=== PATIENT | male | born 2000 | race Caucasian/White ===

== ENCOUNTER → 2024-10-26 | Outpatient (CLI) | payer OTHER, SELFPAY ==
--- NOTE | 2024-10-26 07:24 | US_ITS ---
PROCEDURE: HEAD/NECK SOFT TISSUE 10/26/2024 REASON FOR EXAM: EVALUATE LEFT NECK SUBCUT MASS TECHNIQUE: Targeted sonogram of the left neck at the region of palpable lump COMPARISON: None US/Head/Neck Soft Tissue IMPRESSION: Within the left neck at the region of palpable lump, there is a 4.7 x 4.4 x 2.0 cm hypoechoic structure with debris and posterior enhancement, which may reflect a complex cyst or neoplastic process. Reading Location: [id number]
--- OUTSIDE RECORDS SUMMARY | 2024-10-26 07:25 | XMS RPT_ITS | CCD ---
Author Organization [facility] Care Team Providers Care Interior Decorator Painting Name Role Phone CIRILO BROCK (DIRECTOR OF INFORMATICS) Referring Unavaila ble Álvaro Paul Primary Care Unavailable Álvaro Paul Attending Unavailable Álvaro Paul Referring Unavailable Problems Problem Classification Problem Date Documented Da te Episodic/Chronic Other skin disorders (1 source) Localized swelling, mass and lump, neck; Translations: [Localized swelling, mass and lump, neck] Onset: 10-24-2024 Episodic Results Test Name Value Interpretation Reference Range Facility AMB ENT Physician Progress N oteon 11-04-2019 AMB ENT Physician Progress Note Chief Complaint 2 week follow ears History of Present Illness Tripp returns for follow-up. He never did fill the drops because they were too expensive. In any event the drainage is stopped but the ear still feels blocked. Review of Systems General: Denies fever Eyes: Negative Ears: Right ear still feels blocked, pops and cracks Nose: Negative Oral/Throat: Negative Respiratory: Denies difficulty breathing, shortness of breath or cough GI: Denies recent diarrhea Physical Exam Vitals & Measurements Temperature Temporal (F): 98.2 degF (11/04/19 08:32:00) Systolic Blood Pressure: 144 mmHg High (11/04/19 08:32:00) Diastolic Blood Pressure: 97 mmHg High (11/04/19 08:32:00) Height/Length Measured: 185 cm (11/04/19 08:32:00) Weight Measured: 93 kg (11/04/19 08:32:00) Body Mass Index Measured: 27.17 kg/m2 (11/04/19 08:32:00) Depression Screening Scores Initial Depression Screen Score: 0 (11/04/19 08:32:00) Fall Risk Assessment Is the patient ambulatory (mobile): Yes (11/04/19 08:32:00) Have you had a fall within the past: No (11/04/19 08:32:00) Have you had 2 or more falls in the past: No (11/04/19 08:32:00) Evaluation that right ear does not reveal any evidence of any persistent otorrhea. I do not see a persistent perforation. The drum itself is quite erythematous and injected. He does look he has a cartilage block that is in place. He may have middle ear effusion. Audiometric testing was performed which reveals a normal left ear and a roughly 30 dB conductive hearing loss in the right ear. Tympanogram is normal on the left and type B on the right Assessment/Plan 1. Acute serous otitis media, right ear H65.01 At this point time the perforation is closed and I believe he is now simply left with middle ear fluid. We did try to get that to resolve on its own. 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 He is fine with that as long as he does well see him back in 3 months if he feels as though things are getting worse to notify me I will see him back sooner. Ordered: AMB Comp audiometry threshold & speech recog [id number], 11/04/2019 09:05:00 EDT, Acute serous otitis media, right ear / Conductive hearing loss in right ear, 1 AMB Office/Outpt Est Pt (approx 10 min) [id number], 11/04/2019 09:05:00 EDT, Acute serous otitis media, right ear / Conductive hearing loss in right ear AMB Tympanometry (impedance testing) 21091, 11/04/2019 09:05:00 EDT, Acute serous otitis media, right ear / Conductive hearing loss in right ear, 1 2. Conductive hearing loss in right ear H90.11 Ordered: AMB Comp audiometry threshold & speech recog [id number], 11/04/2019 09:05:00 EDT, Acute serous otitis media, right ear / Conductive hearing loss in right ear, 1 AMB Office/Outpt Est Pt (approx 10 min) [id number], 11/04/2019 09:05:00 EDT, Acute serous otitis media, right ear / Conductive hearing loss in right ear AMB Tympanometry (impedance testing) 08241, 11/04/2019 09:05:00 EDT, Acute serous otitis media, right ear / Conductive hearing loss in right ear, 1 Problem List/Past Medical History Ongoing Migraines Historical No qualifying data Procedure/Surgical History ear surgery Medications No active medications Allergies aspirin ibuprofen Social History Alcohol - Denies Alcohol Use, 12/12/2017 Substance Abuse - Denies Substance Abuse, 12/12/2017 Tobacco Oral, Started age [age] Years., 11/04/2019 Family History Family history is negative Normal [facility] AUTO DIFFon 03-31-2019 Basophils (Bld) [#/Vol] 0.00 x1000 Normal 0.00-0.20 [facility] Comment on above: Performed By: #### 6 [id number], 548551, 335929, [id number], 013640 #### [facility] [address] [place] [address] 05372 Airplane Designer: Maxime Anderson MD Basos % 0.2 % Normal [facility] Comment on above: Performed By: #### 6 877590, 678860, 079637, 3664883, 503873 #### [facility] [address] [place] [address] 13537 Airplane Designer: Maxime Anderson MD Eos Count 0.00 x1000 Normal 0.00-0.50 [facility] Comment on above: Performed By: #### 6 707318, 821495, 682499, 6596447, 726824 #### [facility] [address] [place] [address] 43031 Airplane Designer: Maxime Anderson MD Eosinophils/100 WBC (Bld) 0.2 % Normal [facility] Comment on above: Performed By: #### 6 721226, 465760, 736016, 1837761, 498134 #### [facility] [address] [place] [address] 50486 Airplane Designer: Maxime Anderson MD Lymphocytes (Bld) [#/Vol] 1.00 x1000 Low 1.20-4.80 [facility] Comment on above: Performed By: #### 6 369875, 826748, 155972, 3374758, 466352 #### [facility] [address] [place] [address] 28344 Airplane Designer: Maxime Anderson MD Lymphocytes/100 WBC (Bld) 13.6 % Normal [facility] Comment on above: Performed By: #### 6 651978, 099328, 111905, 2198027, 396308 #### [facility] [address] [place] [address] 06767 Airplane Designer: Maxime Anderson MD [place] Count 0.60 x1000 Normal 0.10-1.00 [facility] Comment on above: Performed By: #### 6 511310, 249523, 567547, 1838963, 713664 #### [facility] [address] [place] [address] 41796 Airplane Designer: Maxime Anderson MD Monocytes/100 WBC (Bld) 8.1 % Normal [facility] Comment on above: Performed By: #### 6 161637, 521762, 326985, 2412628, 824464 #### [facility] [address] [place] [address] 96747 Airplane Designer: Maxime Anderson MD Neutrophils (Bld) [#/Vol] 5.70 x1000 Normal 1.40-8.80 [facility] Comment on above: Performed By: #### 6 445266, 406932, 296390, 7021585, 886072 #### [facility] [address] [place] [address] 88278 Airplane Designer: Maxime Anderson MD Neutrophils/100 WBC (Bld) 77.9 % Normal [facility] Comment on above: Performed By: #### 6 121053, 512167, 108286, 0097221, 945514 #### [facility] [address] [place] [address] 61409 Airplane Designer: Maxime Anderson MD COMPMETAon 03-31-2019 GFR/1.73 sq M predicted among non-blacks MDRD (S/P/Bld) [Vol rate/Area] 78 mL/min/{1.73_m2} Normal [facility] Comment on above: Result Comment: The GFR is calculated and is Age, Sex, and Race adjusted. Performed By: #### 6 436380, 247486, 469707, 4696679, 226466 #### [facility] [address] [place] [address] 77560 Airplane Designer: Maxime Anderson MD Albumin [Mass/Vol] 3.6 g/dL Normal 3.4-5.0 [facility] Comment on above: Performed By: #### 6 296049, 146119, 368287, 4086797, 715943 #### [facility] [address] [place] [address] 80420 Airplane Designer: Maxime Anderson MD Albumin/Globulin [Mass ratio] 1.0 {ratio} Normal [facility] Comment on above: Performed By: #### 6 793917, 091798, 216399, 6614729, 761323 #### [facility] [address] [place] [address] 23300 Airplane Designer: Maxime Anderson MD Alk Phos 68 unit/L Normal 45-117 [facility] Comment on above: Performed By: #### 6 651681, 253732, 775039, 8370836, 772588 #### [facility] [address] [place] [address] 07297 Airplane Designer: Maxime Anderson MD Bilirubin [Mass/Vol] 1.00 mg/dL Normal 0.20-1.00 [facility] Comment on above: Performed By: #### 6 637146, 517844, 721687, 3620706, 289358 #### [facility] [address] [place] [address] 69790 Airplane Designer: Maxime Anderson MD Calcium [Mass/Vol] 8.4 mg/dL Low 8.5-10.5 [facility] Comment on above: Performed By: #### 6 885288, 860586, 361353, 1236319, 014346 #### [facility] [address] [place] [address] 97613 Airplane Designer: Maxime Anderson MD Chloride [Moles/Vol] 102 mmol/L Normal 100-109 [facility] Comment on above: Performed By: #### 6 820846, 140458, 653358, 8585608, 233490 #### [facility] [address] [place] [address] 23284 Airplane Designer: Maxime Anderson MD CO2, venous 24.5 mmol/L Normal 21.0-32.0 [facility] Comment on above: Performed By: #### 6 866873, 344627, 012639, 8984043, 500386 #### [facility] [address] [place] [address] 35988 Airplane Designer: Maxime Anderson MD Creatinine [Mass/Vol] 1.2 mg/dL Normal 0.7-1.3 [facility] Comment on above: Performed By: #### 6 982824, 435041, 491762, 4384042, 008348 #### [facility] [address] [place] [address] 89416 Airplane Designer: Maxime Anderson MD Globulin (S) [Mass/Vol] 3.6 g/dL Normal [facility] Comment on above: Performed By: #### 6 848743, 470863, 034608, 3249337, 510178 #### [facility] [address] [place] [address] 24642 Airplane Designer: Maxime Anderson MD Glucose [Mass/Vol] 91 mg/dL Normal 72-100 [facility] Comment on above: Result Comment: Sherry puncture should occur prior to sulfasalazine administration due to the potential for falsely depressed results. Venipuncture should occur prior to sulfapyridine administration due to the potential falsely elevated results. Baseline assay values before administration of sulfasalazine and sulfapyridine therapy would not be affected. Performed By: #### 6 165040, 045699, 345418, 9203299, 097453 #### [facility] [address] [place] [address] 59847 Airplane Designer: Maxime Anderson MD GOT 13 unit/L Low 15-37 [facility] Comment on above: Result Comment: Sherry puncture should occur prior to sulfasalazine administration due to the potential for falsely depressed results. Baseline assay values before administration of sulfasalazine and sulfapyridine therapy would not be affected. Performed By: #### 6 861244, 525163, 679554, 7613543, 455493 #### [facility] [address] [place] [address] 38774 Airplane Designer: Maxime Anderson MD GPT 46 unit/L Normal 16-63 [facility] Comment on above: Result Comment: Sherry puncture should occur prior to sulfasalazine administration due to the potential for falsely depressed results. Baseline assay values before administration of sulfasalazine and sulfapyridine therapy would not be affected. Performed By: #### 6 446495, 947596, 255118, 0760772, 052389 #### [facility] [address] [place] [address] 10968 Airplane Designer: Maxime Anderson MD Osmolality [Osmolality] 276 mOsm/kg Normal 275-295 [facility] Comment on above: Performed By: #### 6 271899, 734670, 674699, 8402911, 412782 #### [facility] [address] [place] [address] 36499 Airplane Designer: Maxime Anderson MD Potassium [Moles/Vol] 3.5 mmol/L Normal 3.5-5.1 [facility] Comment on above: Performed By: #### 6 400423, 919300, 013682, 8197365, 197621 #### [facility] [address] [place] [address] 19760 Airplane Designer: Maxime Anderson MD Protein [Mass/Vol] 7.2 g/dL Normal 6.0-8.5 [facility] Comment on above: Performed By: #### 6 473745, 384565, 653935, 1340418, 854099 #### [facility] [address] [place] [address] 20891 Airplane Designer: Maxime Anderson MD Sodium [Moles/Vol] 139 mmol/L Normal 135-145 [facility] Comment on above: Performed By: #### 6 361269, 217154, 457934, 5259719, 242593 #### [facility] [address] [place] [address] 73022 Airplane Designer: Maxime Anderson MD Urea nitrogen [Mass/Vol] 10 mg/dL Normal 10-20 [facility] Comment on above: Performed By: #### 6 673298, 596491, 160538, 8872459, 186236 #### [facility] [address] [place] [address] 40215 Airplane Designer: Maxime Anderson MD Urea nitrogen/Creatinine [Mass ratio] 8.3 mg/mg Normal [facility] Comment on above: Performed By: #### 6 477864, 668013, 678703, 3275005, 451695 #### [facility] [address] [place] [address] 94877 Airplane Designer: Maxime Anderson MD CRP QUANTon 03-31-2019 C-Reactive Protein, Quantitative 3.9 mg/dL High 0.0-0.3 [facility] Comment on above: Performed By: #### 6 815449, 920597, 341621, 2474838, 513886 #### [facility] [address] [place] [address] 81680 Airplane Designer: Maxime Anderson MD CT ABD PELVIS W IV CONTRASTo n 03-31-2019 CT ABD PELVIS W IV CONTRAST EXAM DESCRIPTION: CT OF THE ABDOMEN AND PELVIS CLINICAL INDICATION: PAIN. TECHNIQUE: Helical CT imaging was obtained of the abdomen and pelvis with multiplanar reconstructions. This exam was performed according to our departmental dose-optimization program, which includes automated exposure control, adjustment of the mA and/or kV according to patient size and/or use of iterative reconstruction techniques. COMPARISON: None FINDINGS: Abdomen: Visualized lung bases are grossly unremarkable. No focal consolidation. The liver, spleen, pancreas, adrenal glands and kidneys show no acute abnormality. No evidence of acute pancreatitis. There are no calcified gallstones. There is no gallbladder wall thickening. No pericholecystic fluid.. No gross biliary duct dilatation. No hydronephrosis. Very small fat-containing umbilical hernia No free air. No significant free fluid. No significant lymph node enlargement. No aneurysmal enlargement of the abdominal aorta. Pelvis: No bowel obstruction. No herniated bowel loops. No focal inflammatory changes. 6 normal appendix identified. Evaluation of the bowel is limited without enteric contrast. There is no significant free fluid in the pelvis. Bladder is grossly unremarkable. No acute osseous abnormality IMPRESSION: No evidence of an acute process. No bowel obstruction, herniated bowel loops or focal inflammatory changes. 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 History source: Patient. Arrival mode: Private vehicle. History limitation: None. History of Present Illness Pt just left AMA. But when he got to his car, the pain was bothering him, so now he is back to have the CT scan. No other change in symptoms. Health Status Allergies: Allergic Reactions (Selected) Severity Not Documented Aspirin- No reactions were documented. Ibuprofen- No reactions were documented.. Past Medical/ Family/ Social History Medical history: No active or resolved past medical history items have been selected or recorded.. Surgical history: ear surgery.. Physical Examination Vital Signs Vital Signs 03/31/2019 0:15 EST Systolic Blood Pressure 128 mmHg NORMAL Diastolic Blood Pressure 88 mmHg NORMAL Temperature Oral 36.9 degC NORMAL Respiratory Rate 16 br/min NORMAL SpO2 99 % NORMAL Peripheral Pulse Rate 88 bpm NORMAL 03/30/2019 23:15 EST Heart Rate Monitored 96 bpm NORMAL SpO2 98 % NORMAL Peripheral Pulse Rate 96 bpm NORMAL 03/30/2019 23:00 EST Systolic Blood Pressure 137 mmHg NORMAL Diastolic Blood Pressure 84 mmHg NORMAL Heart Rate Monitored 102 bpm HI SpO2 96 % NORMAL Peripheral Pulse Rate 108 bpm HI 03/30/2019 22:52 EST Systolic Blood Pressure 137 mmHg NORMAL Diastolic Blood Pressure 84 mmHg NORMAL Temperature Oral 36.9 degC NORMAL Respiratory Rate 18 br/min NORMAL SpO2 98 % NORMAL Oxygen Therapy Room air Peripheral Pulse Rate 110 bpm HI Weight Measured Type of Scale Patient Stated Weight Height/Length Dosing 182 cm Patient Stated Weight 86 kg . General: Alert, no acute distress. Neck: Supple, no tenderness. Cardiovascular: Regular rate and rhythm, No murmur, Normal peripheral perfusion. Respiratory: Lungs are clear to auscultation, respirations are non-labored. Gastrointestinal: Soft, Non distended, No tenderness.. Medical Decision Making Radiology results: Reviewed radiologist's report, Per radiologist: normal appendix, no herniated bowel, no inflammatory changes, no osseous abnormality.. After careful consideration of all the relevant factors involved, my judgment is that the benefit of CT scan in helping to determine diagnosis and evaluate for possibly emergent conditions which might require surgery/antibiotics/ho spitalization outweighs the risk of radiation and IV contrast exposure, and that reasonably-available alternative radiological studies would not adequately substitute. Risk vs benefit discussed; pt consents verbally. A/P: (Please also see my note from the visit that occurred less than an hour ago). Pt with one day history of back pain, also in lower abdomen. Afebrile. CT scan read as normal appendix, no bowel herniation, no acute osseous abnormality. Patient's pain improving. Final abdominal exam benign. After careful consideration of all available information, there is no reasonable suspicion for: appendicitis, spinal infection, cauda equina, testicular torsion, other emc. See prior A/P today regarding RODRIGUEZ. Pt is to follow-up closely with PMD. Specific red flags for immediate return discussed. (I offered to give Reglan for migraine, pt declined. I offered Tylenol, pt declined) Reexamination/ Reevaluation 01:22 Pain improved. Impression and Plan Diagnosis Abdominal pain, acute (MXO35-HD R10.9, Working, Medical) Acute lumbar back pain (TLL74-EV M54.5, Working, Medical) Migraine headache (RFV28-XL G43.909, Working, Medical) Blood pressure elevated without history of HTN (JKT37-IV R03.0, Working, Medical) Plan Condition: Improved, Stable. Disposition: ED Discharge to Home was placed.(03/31/2019 01:22:17 EST, Constant Order). Patient was given the following educational materials: Abdominal Pain (amv) (4279), Headache, Migraine (amv) (4279), Pre-Hypertension/Hyper ension (amv) (4279), Back Pain (4279) (4279), Back Pain (4279) (4279), Pre-Hypertension/Hyper ension (amv) (4279), Headache, Migraine (amv) (4279), Abdominal Pain (amv) (4279). Follow up with: ADELITA BECKHAM, Family Practice Within 1 to 2 days Return IMMEDIATELY for: fever, vomiting, severe or unusual headache, WORSENING pain in abdomen or back, pain that is mostly on one side, numbness/tingling, weakness, problems controlling bladder or bowels, or any other WORSENING. Be certain to follow-up prompty with doctor as discussed; call this morning to schedule an appointment. Important: If for some reason you are not able to get an appointment with the follow-up physician in the timeframe discussed, please return to Emergency Department for re-evaluation. Have follow-up physician review all of the tests done in the department tonight, as some may require further investigation. . Counseled: Patient, Regarding diagnosis, Regarding diagnostic results, Regarding treatment plan, Patient indicated understanding of instructions, In addition to my written discharge instructions, I verbally explained to patient my diagnosis as well as plans for outpatient treatment, and red flags for immediate return to our ED. Pt had opportunity to ask any questions about all of this, and pt is comfortable with plan.. Orders: Launch Order Profile (Selected) Inpatient Orders Ordered Normal Saline Bolus (0.9%NaCl): 1,000 mL, 1000 mL/hr, IV Piggyback, ONCE Completed CT ABD PELVIS W IV CONTRAST: . 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 History source: Patient. Arrival mode: Private vehicle. History limitation: None. History of Present Illness Patient complains of non-lateralizing lumbar pain since about 9am. Continuous. 6 of 10 severity. Some aggravation from sitting up. Has had some associated nausea, suprapubic discomfort, and feels bloated. No history of abdominal surgery. Review of Systems Constitutional symptoms: Fatigue, No fever, ENMT symptoms: Negative except as documented in HPI, No sore throat, Respiratory symptoms: No shortness of breath, no cough. Cardiovascular symptoms: No chest pain, Gastrointestinal symptoms: One episode of diarrhea this morning.. Genitourinary symptoms: No dysuria, no hematuria. Musculoskeletal symptoms: No LE swelling.. Neurologic symptoms Had migraine headache yesterday; resolved after treatment; recurred today; no atypical features compared to his long history of migraines., no numbness, no tingling, no weakness. Additional review of systems information: All other systems reviewed and otherwise negative. Health Status Allergies: Allergic Reactions (Selected) Severity Not Documented Aspirin- No reactions were documented. Ibuprofen- No reactions were documented.. Past Medical/ Family/ Social History Medical history: Migraines. Recurrent lumbar pain.. Surgical history: ear surgery., Reviewed as documented in chart. Social history: Alcohol use: Denies, Tobacco use: Denies. Physical Examination Vital Signs Vital Signs 03/30/2019 23:15 EST Heart Rate Monitored 96 bpm NORMAL SpO2 98 % NORMAL Peripheral Pulse Rate 96 bpm NORMAL 03/30/2019 23:00 EST Systolic Blood Pressure 137 mmHg NORMAL Diastolic Blood Pressure 84 mmHg NORMAL Heart Rate Monitored 102 bpm HI SpO2 96 % NORMAL Peripheral Pulse Rate 108 bpm HI 03/30/2019 22:52 EST Systolic Blood Pressure 137 mmHg NORMAL Diastolic Blood Pressure 84 mmHg NORMAL Temperature Oral 36.9 degC NORMAL Respiratory Rate 18 br/min NORMAL SpO2 98 % NORMAL Oxygen Therapy Room air Peripheral Pulse Rate 110 bpm HI Weight Measured Type of Scale Patient Stated Weight Height/Length Dosing 182 cm Patient Stated Weight 86 kg . General: Alert, no acute distress, Not ill-appearing, Skin: Warm, dry. Head: Normocephalic, atraumatic. Neck: Supple, no tenderness. Eye: Pupils are equal, round and reactive to light, extraocular movements are intact, normal conjunctiva, No nystagmus.. Ears, nose, mouth and throat: Oral mucosa moist, no pharyngeal erythema or exudate. Cardiovascular: Regular rate and rhythm, No murmur, Normal peripheral perfusion, No edema. Respiratory: Lungs are clear to auscultation, respirations are non-labored, breath sounds are equal. Gastrointestinal: Soft, Non distended, Normal bowel sounds, Mild LLQ tenderness; no other abdominal tenderness. No rebound or guarding.. Genitourinary: Examined standing: normal testicular lie; no testicular tenderness or swelling; no inguinal hernia with cough bilaterally.. Neurological Alert and oriented to person, place, time, and situation, No focal neurological deficit observed, normal sensory observed, normal motor observed, normal speech observed, normal coordination observed, 5/5 bilateral hip flexion, knee extention, great toe extention; grossly normal light-touch throughout bilateral LE., Normal gait.. Medical Decision Making Electrocardiogram: No leukocytosis. Mildly elevated CRP. . A/P: 1) Pt with one-day history of non-lateralizing pain to lumbar area, with mild suprapubic pain. Minimal abdominal tenderness. Afebrile. Has no leukocytosis, but does have elevated CRP. Had some improvement without treatment here. I explained to patient the rationale for my wanting to get a CT scan of abdomen and pelvis; potential risks of not doing it (e.g., ruptured appendix with severe infection and life-long complications from adhesions) explained; pt REFUSES CT scan; he prefers to go home and see if it continues to improve; says he will see Dr. Beckham this morning; I urged him to return immediately should he change his mind, or for any worsening or the red flags we discussed. 2) Pt with migraine headache, which he says is completely typical of long history of migraines. Afebrile, looks well, supple neck, normal neuro exam. After careful consideration of all available information, there is no reasonable suspicion for: CERTIFIED NURSE PRACTITIONER infection, intracranial hemorrhage, dural venous sinus thrombosis, cervical arterial dissection, other emc. 3) PMD f/u today, or return to ER. Reexamination/ Reevaluation 00:00 Pt says pain has improved from 8 to 6. Has minimal RUQ/suprapubic pain. No change in pain when he jumps up and down. Impression and Plan Diagnosis Abdominal pain, acute (CCU93-II R10.9, Working, Medical) Acute lumbar back pain (UJK29-BI M54.5, Working, Medical) Headache ([id number] R51, Working, Medical) Plan Condition: Improved. Disposition: Time 03/31/2019 00:04:00, Left against medical advice, Please see AMA T-sheet and [facility] T-sheet.. Follow up with: ADELITA BECKHAM, Family Practice 03/31/2019 09:00:00 Return IMMEDIATELY for: any worsening of your pain in any way, pain that seems mostly on one side, fever, vomiting, any other WORSENING...or if you change your mind and want to have further evaluation of possbily very serious problems, such as appendicitis. Be certain to follow-up prompty with doctor as discussed; call this morning to schedule an appointment. Important: If for some reason you are not able to get an appointment with the follow-up physician FOR THIS MORNING, please return to Emergency Department for re-evaluation. Have follow-up physician review all of the tests done in the department tonight, as some may require further investigation. Drink clear fluids only until pain has clearly and completely resolved.. Counseled: Patient, Regarding diagnosis, Regarding diagnostic results, Regarding treatment plan, Patient indicated understanding of instructions, In addition to my written discharge instructions, I verbally explained to patient my diagnosis as well as plans for outpatient treatment, and red flags for immediate return to our ED. Pt had opportunity to ask any questions about all of this, and pt is comfortable with plan.. Orders: Launch Order Profile (Selected) Inpatient Orders Completed CBC WITH DIFF: CMP: CRP QUANT: LIPASE: URINALYSIS: Urinalysis with Microscopic: . Normal [facility] ED Progress Noteon 11-07-201 9 ED Progress Note Pt returns to ED for CT scan after leaving AMA. VSS and RR unlabored. IV placed. Will continue to monitor. Pt ambulated to DC w/ steady gait. VSS and RR unlabored. IV removed w/o incident. DC instructions and f/u recommendations given to pt who states understanding. All questions answered prior to DC. Normal [facility] ED Progress Note Pt presents to ED fr om home w/ c/o of lower back, abd pain and stomach pressure all day. Pt is concerned for kidney stones but denies significant dysuria. VSS and RR unlabored. Urine specimen obtained, IV started and labs drawn. Will continue to monitor. Pt left facility AMA, all forms signed as indicated. Pt ambulated to DC w/ steady gait. VSS and RR unlabored. IV removed w/o incident. DC instructions and f/u recommendations given to pt who states understanding. All questions answered prior to DC. Normal [facility] HEMOon 03-31-2019 DIFF? No Normal [facility] Comment on above: Performed By: #### 6 [id number], 735392, 219427, [id number], [id number] #### [facility] [address] [place] [address] Airplane Designer: Maxime Anderson MD Erythrocyte distribution width (RBC) [Ratio] 12.8 % Normal 11.5-14.5 [facility] Comment on above: Performed By: #### 6 [id number], 916124, 822168, 8169263, 537273 #### [facility] [address] [place] [address] Airplane Designer: Maxime Anderson MD Hematocrit (Bld) [Volume fraction] 48.3 % Normal 41.0-52.0 [facility] Comment on above: Performed By: #### 6 919297, 956518, 670128, 9149680, 961404 #### [facility] [address] [place] [address] Airplane Designer: Maxime Anderson MD Hemoglobin (Bld) [Mass/Vol] 16.4 g/dL Normal 13.5-17.5 [facility] Comment on above: Performed By: #### 6 762994, 513208, 542063, 0122485, 339162 #### [facility] [address] [place] [address] Airplane Designer: Maxime Anderson MD MCH (RBC) [Entitic mass] 29.3 pg Normal 27.0-34.0 [facility] Comment on above: Performed By: #### 6 727382, 610222, 069222, 4488225, 597326 #### [facility] [address] [place], [place] [id number] Airplane Designer: Maxime Anderson MD MCHC (RBC) [Mass/Vol] 34.1 g/dL Normal 32.0-37.0 [facility] Comment on above: Performed By: #### 6 029233, 002038, 733552, 9752686, 094306 #### [facility] [address] [place], [place] [id number] Airplane Designer: Maxime Anderson MD MCV (RBC) [Entitic vol] 86.1 fL Normal 80.0-100.0 [facility] Comment on above: Performed By: #### 6 513292, 479941, 128110, 9978770, 689950 #### [facility] [address] [place], [place] [id number] Airplane Designer: Maxime Anderson MD Nucleated RBC (Bld) [#/Vol] 0 /100WBC Normal [facility] Comment on above: Performed By: #### 6 515159, 958551, 159434, 6020886, 969474 #### [facility] [address] [place], [place] [id number] Airplane Designer: Maxime Anderson MD Platelet mean volume (Bld) [Entitic vol] 7.3 fL Low 7.4-10.4 [facility] Comment on above: Performed By: #### 6 089362, 065693, 916797, 0142637, 526325 #### [facility] [address] [place] [address] Airplane Designer: Maxime Anderson MD Platelets (Bld) [#/Vol] 189 x1000 Normal 150-450 [facility] Comment on above: Performed By: #### 6 526674, 886702, 306375, 8741043, 605068 #### [facility] [address] [place] [address] Airplane Designer: Maxime Anderson MD RBC (Bld) [#/Vol] 5.61 x10 Normal 4.70-6.[address] [facility] Comment on above: Result Comment: Note : RBC morphology is normal unless otherwise stated. Evaluation performed only if differential is requested. Performed By: #### 6 432363, 442537, 558609, 7927861, 703819 #### [facility] [address] [place] [address] Airplane Designer: Maxime Anderson MD WBC (Bld) [#/Vol] 7.3 10*3/uL Normal [facility] Comment on above: Performed By: #### 6 670760, 889332, 637413, 8069444, 241831 #### [facility] [address] [place] [address] Airplane Designer: Maxime Anderson MD WBC (Bld) [#/Vol] 7.3 x10 Normal 4.5-11.[address] [facility] Comment on above: Performed By: #### 6 497114, 888349, 011981, 3226483, 575358 #### [facility] [address] [place] [address]881 Airplane Designer: MD Mariela Castillo 03-31-2019 Lipase [Catalytic activity/Vol] 87 unit/L Normal 73-393 [facility] Comment on above: Performed By: #### 6 013041, 459344, 886984, 8418078, 129057 #### [facility] [address] [place] [address] Airplane Designer: Maxime Anderson MD UAon 03-31-2019 Appearance, U Clear Normal [facility] Comment on above: Performed By: #### 1 14947 #### [facility] [address] [place] [address] Airplane Designer: Maxime Anderson MD Bacteria, U Occasional Normal [facility] Comment on above: Performed By: #### 1 55330 #### [facility] [address] [place] [address] Airplane Designer: Maxime Anderson MD Bilirubin, U Negative Normal Negative [facility] Comment on above: Performed By: #### 1 96575 #### [facility] [address] [place] [address] Airplane Designer: Maxime Anderson MD Blood, U Trace Abnormal Negative [facility] Comment on above: Performed By: #### 1 22220 #### [facility] [address] [place] [address] Airplane Designer: Maxime Anderson MD Color, U Yellow Normal [facility] Comment on above: Performed By: #### 1 61643 #### [facility] [address] [place] [address] Airplane Designer: Maxime Anderson MD Glucose Qual, U Negative Normal Negative [facility] Comment on above: Performed By: #### 1 78771 #### [facility] [address] [place] [address] Airplane Designer: Maxime Anderson MD Ketones, U Negative Normal Negative [facility] Comment on above: Performed By: #### 1 44463 #### [facility] [address] [place] [address] Airplane Designer: Maxime Anderson MD Leukocyte Esterase, U Negative Normal Negative [facility] Comment on above: Performed By: #### 1 88773 #### [facility] [address] [place] [address] Airplane Designer: Maxime Anderson MD Nitrite, U Negative Normal Negative [facility] Comment on above: Performed By: #### 1 69117 #### [facility] [address] [place] [address] Airplane Designer: Maxime Anderson MD pH, U 5.5 Normal 4.5-8.0 [facility] Comment on above: Performed By: #### 1 83041 #### [facility] [address] [place] [address] Airplane Designer: Maxime Anderson MD Protein, U Negative Normal Negative [facility] Comment on above: Performed By: #### 1 70709 #### [facility] [address] [place] [address] Airplane Designer: Maxime Anderson MD RBC/HPF, U 1 #/HPF Normal 0-3 [facility] Comment on above: Performed By: #### 1 37172 #### [facility] [address] [place] [address] 93521 Airplane Designer: Maxime Anderson MD Specific [place], U 1.010 Normal 1.001-1.035 [facility] Comment on above: Performed By: #### 1 45328 #### [facility] [address] [place] [address] 6[address]75 Airplane Designer: Maxime Anderson MD Squamous Epithelial Cells, U <1 Normal [facility] Comment on above: Performed By: #### 1 87669 #### [facility] [address] [place] [address] 63296 Airplane Designer: Maxime Anderson MD U MICRO Indicated Normal [facility] Comment on above: Performed By: #### 1 68711 #### [facility] [address] [place] [address] 74962 Airplane Designer: Maxime Anderson MD Urobilinogen Qual, U 0.2 EU/dl Normal 0.1-1.0 mg/dl [facility] Comment on above: Result Comment: EU/d l and mg/dl are equivalent units. Performed By: #### 1 39146 #### [facility] [address] [place] [address] Airplane Designer: Maxime Anderson MD WBC/HPF, U 2 #/HPF Normal 0-5 [facility] Comment on above: Performed By: #### 1 44017 #### [facility] [address] [place] [address] Airplane Designer: Maxime Anderson MD Chart Updateon 02-15-2019 Chart Update Active Problems Bilateral knee pain (719.46) (M25.561,M25.562) Dermatitis, contact (692.9) (L25.9) Elevated hemoglobin (282.7) (D58.2) Epigastric pain (789.06) (R10.13) 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 Recheck, and check 24-hour urine collection. If repeat/additional testing shows elevated Mn, then follow-up with plasma processing centrifuge operator. Schedule with neurology, as referred. Proceed with MRI, as scheduled. Advised him to minimize additional exposure to Mn (wear respirator, wash and scrub hands thoroughly, be dilligent in using appropriate PPE. Palpitations (785.1) (R00.2) Normal EKG. Migraine with aura and without status migrainosus, not intractable (346.00) (G43.109) Orders High blood manganese Manganese, Serum; Specimen Source:Blood (BLD); Status:Active; Requested for:[id number]; Perform:Lab Services - Lab To Draw (Blood Test); Due:[id number];Ordered; For:High blood manganese; Ordered By:Jason Nicholson; Manganese, Urine; Specimen Source:24 (COLPA); Status:Active; Requested for:[id number]; Perform:Lab Services - Lab To Draw (Non-Blood Test); Order Comments:24-hour urine collection; Due:[id number];Ordered; For:High blood manganese; Ordered By:Jason Nicholson; Chart Update Progress Note Free Text_UH: Spoke with patient via telephone, who reports some improvement in headaches since reducing caffeine intake. Shakiness remains unchanged. Has not been working with manganese for several days. 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 Occasionally wears a dust mask. Has MRI scheduled, has not yet scheduled with neurologist. Signatures Electronically signed by : Jason Nicholson DO; Feb 15 2019 3:31PM EST (Author) Normal [facility] MANGANESEon 02-07-2019 MANGANESE 19.2 ug/L High 4.2-16.5 [facility] Comment on above: Order Comment: Sampl e to be sent next day. Result Comment: TEST INFORMATION: Manganese, Blood Elevated results may be due to skin or collection-related contamination, including the use of a noncertified metal-free collection/transport tube. If contamination concerns exist due to elevated levels of blood manganese, confirmation with a second specimen collected in a certified metal-free tube is recommended. Test developed and characteristics determined by [facility]. See Compliance Statement B: [employer]/CS Performed by [facility], [address] [facility] [employer] [place] [address] [email or web address], You Rodgers MD - Lab. Director Performed By: #### M ANGB #### [facility] [address] [facility], [place] [address] CBC AND DIFFERENTIALon 02-04 % AUTOMATED IMMATURE GRAN 0.5 % Normal 0.0 - 0.9 [facility] Comment on above: Order Comment: Sampl e to be sent next day. Result Comment: Perc ent differential counts (%) should be interpreted in the context of the absolute cell counts (cells/L). Performed By: #### C BCDF #### [facility] [address] [place] [address] Basophils (Bld) [#/Vol] 0.02 10*3/uL Normal 0.00 - 0.10 [facility] Comment on above: Order Comment: Sampl e to be sent next day. Performed By: #### C BCDF #### [facility] [address] [place] [address] Basophils/100 WBC (Bld) 0.3 % Normal 0.0 - 2.0 [facility] Comment on above: Order Comment: Sampl e to be sent next day. Performed By: #### C BCDF #### [facility] [address] [place] [address] Eosinophils (Bld) [#/Vol] 0.11 10*3/uL Normal 0.00 - 0.70 [facility] Comment on above: Order Comment: Sampl e to be sent next day. Performed By: #### C BCDF #### [facility] [address] [place] [address] Eosinophils/100 WBC (Bld) 1.7 % Normal 0.0 - 6.0 [facility] Comment on above: Order Comment: Sampl e to be sent next day. Performed By: #### C BCDF #### [facility] [address] [place] [address] Erythrocyte distribution width (RBC) [Ratio] 12.5 % Normal 11.5 - 14.5 [facility] Comment on above: Order Comment: Sampl e to be sent next day. Performed By: #### C BCDF #### [facility] [address] [place] [address] Hematocrit (Bld) [Volume fraction] 50.0 % Normal 41.0 - 52.0 [facility] Comment on above: Order Comment: Sampl e to be sent next day. Performed By: #### C BCDF #### [facility] [address] [place] [address] Hemoglobin (Bld) [Mass/Vol] 16.2 g/dL Normal 13.5 - 17.5 [facility] Comment on above: Order Comment: Sampl e to be sent next day. Performed By: #### C BCDF #### [facility] [address] [place] [address] Lymphocytes (Bld) [#/Vol] 2.00 10*3/uL Normal 1.20 - 4.80 [facility] Comment on above: Order Comment: Sampl e to be sent next day. Performed By: #### C BCDF #### [facility] [address] [place] [address] Lymphocytes/100 WBC (Bld) 31.3 % Normal 13.0 - 44.0 [facility] Comment on above: Order Comment: Sampl e to be sent next day. Performed By: #### C BCDF #### [facility] [address] [place] [address] MCHC (RBC) [Mass/Vol] 32.4 g/dL Normal 32.0 - 36.0 [facility] Comment on above: Order Comment: Sampl e to be sent next day. Performed By: #### C BCDF #### [facility] [address] [place] [address] MCV (RBC) [Entitic vol] 90 fL Normal 80 - 100 [facility] Comment on above: Order Comment: Sampl e to be sent next day. Performed By: #### C BCDF #### [facility] [address] [place] [address] Monocytes (Bld) [#/Vol] 0.57 10*3/uL Normal 0.10 - 1.00 [facility] Comment on above: Order Comment: Sampl e to be sent next day. Performed By: #### C BCDF #### [facility] [address] [place] [address] Monocytes/100 WBC (Bld) 8.9 % Normal 2.0 - 10.0 [facility] Comment on above: Order Comment: Sampl e to be sent next day. Performed By: #### C BCDF #### [facility] [address] [place] [address] Neutrophils (Bld) [#/Vol] 3.66 10*3/uL Normal 1.20 - 7.70 [facility] Comment on above: Order Comment: Sampl e to be sent next day. Performed By: #### C BCDF #### [facility] [address] [place] [address] Neutrophils/100 WBC (Bld) 57.3 % Normal 40.0 - 80.0 [facility] Comment on above: Order Comment: Sampl e to be sent next day. Performed By: #### C BCDF #### [facility] [address] [place] [address] Nucleated RBC/100 WBC (Bld) [Ratio] 0.0 /100 WBC Normal 0.0-0.0 [facility] Comment on above: Order Comment: Sampl e to be sent next day. Performed By: #### C BCDF #### [facility] [address] [place] [address] Platelets (Bld) [#/Vol] 205 10*3/uL Normal 150 - 450 [facility] Comment on above: Order Comment: Sampl e to be sent next day. Performed By: #### C BCDF #### [facility] [address] [place] [address] RBC (Bld) [#/Vol] 5.56 x10E12/L Normal 4.50 - 5.90 [facility] Comment on above: Order Comment: Sampl e to be sent next day. Performed By: #### C BCDF #### [facility] [address] [place] [address] WBC (Bld) [#/Vol] 6.4 10*3/uL Normal 4.4 - 11.3 [facility] Comment on above: Order Comment: Sampl e to be sent next day. Performed By: #### C BCDF #### [facility] [address] [place] [address] COAGULATION SCREENon 019 aPTT Coag (Bld) [Time] 35 s Normal 28 - 38 [facility] Comment on above: Order Comment: Sampl e to be sent next day. Result Comment: THE APTT IS NO LONGER USED FOR MONITORING UNFRACTIONATED HEPARIN THERAPY. FOR MONITORING HEPARIN THERAPY, USE THE HEPARIN ASSAY. Performed By: #### C OAGS #### [facility] [address] [place] [address] INR Coag (PPP) [Relative time] 1.1 {INR} Normal 0.9 - 1.1 [facility] Comment on above: Order Comment: Sampl e to be sent next day. Performed By: #### C OAGS #### [facility] [address] [place] [address] PT Coag (PPP) [Time] 12.2 s Normal 9.7 - 12.7 [facility] Comment on above: Order Comment: Sampl e to be sent next day. Performed By: #### C OAGS #### [facility] [address] [place] [address] COMPREHENSIVE PANELon 2018 Albumin [Mass/Vol] 4.4 g/dL Normal 3.4 - 5.0 [facility] Comment on above: Order Comment: Sampl e to be sent next day. Performed By: #### C MP #### [facility] [address] [place] [address] ALP [Catalytic activity/Vol] 64 U/L Normal 33 - 120 [facility] Comment on above: Order Comment: Sampl e to be sent next day. Performed By: #### C MP #### [facility] [address] [place] [address] ALT [Catalytic activity/Vol] 70 U/L High 10 - 52 [facility] Comment on above: Order Comment: Sampl e to be sent next day. Result Comment: Maria Teresa ents treated with Sulfasalazine may generate falsely decreased results for ALT. Performed By: #### C MP #### [facility] [address] [place] [address] Anion gap [Moles/Vol] 12 mmol/L Normal 10 - 20 [facility] Comment on above: Order Comment: Sampl e to be sent next day. Performed By: #### C MP #### [facility] [address] [place] [address] AST [Catalytic activity/Vol] 32 U/L Normal 9 - 39 [facility] Comment on above: Order Comment: Sampl e to be sent next day. Performed By: #### C MP #### [facility] [address] [place] [address] Bilirubin [Mass/Vol] 0.5 mg/dL Normal 0.0 - 1.2 [facility] Comment on above: Order Comment: Sampl e to be sent next day. Performed By: #### C MP #### [facility] [address] [place] [address] Calcium [Mass/Vol] 9.5 mg/dL Normal 8.6 - 10.6 [facility] Comment on above: Order Comment: Sampl e to be sent next day. Performed By: #### C MP #### [facility] [address] [place] [address] Chloride [Moles/Vol] 107 mmol/L Normal 98 - 107 [facility] Comment on above: Order Comment: Sampl e to be sent next day. Performed By: #### C MP #### [facility] [address] [place] [address] Creatinine [Mass/Vol] 1.08 mg/dL Normal 0.50 - 1.30 [facility] Comment on above: Order Comment: Sampl e to be sent next day. Performed By: #### C MP #### [facility] [address] [place] [address] GFR- AM. >60 Normal >60 [facility] Comment on above: Order Comment: Sampl e to be sent next day. Result Comment: CALC ULATIONS OF ESTIMATED GFR ARE PERFORMED USING THE MDRD STUDY EQUATION FOR THE IDMS-TRACEABLE CREATININE METHODS. CLIN CHEM 2007;53:766-72 Performed By: #### C MP #### [facility] [address] [place] [address] GFR-NON AM. >60 Normal >60 [facility] Comment on above: Order Comment: Sampl e to be sent next day. Performed By: #### C MP #### [facility] [address] [place] [address] Glucose [Mass/Vol] 85 mg/dL Normal 74 - 99 [facility] Comment on above: Order Comment: Sampl e to be sent next day. Performed By: #### C MP #### [facility] [address] [place] [address] HCO3 (Bld) [Moles/Vol] 24 mmol/L Normal 21 - 32 [facility] Comment on above: Order Comment: Sampl e to be sent next day. Performed By: #### C MP #### [facility] [address] [place] [address] Potassium [Moles/Vol] 4.1 mmol/L Normal 3.5 - 5.3 [facility] Comment on above: Order Comment: Sampl e to be sent next day. Performed By: #### C MP #### [facility] [address] [place] [address] Protein [Mass/Vol] 6.8 g/dL Normal 6.4 - 8.2 [facility] Comment on above: Order Comment: Sampl e to be sent next day. Performed By: #### C MP #### [facility] [address] [place] [address] Sodium [Moles/Vol] 139 mmol/L Normal 136 - 145 [facility] Comment on above: Order Comment: Sampl e to be sent next day. Performed By: #### C MP #### [facility] [address] [place] [address] Urea nitrogen [Mass/Vol] 14 mg/dL Normal 6 - 23 [facility] Comment on above: Order Comment: Sampl e to be sent next day. Performed By: #### C MP #### [facility] [address] [place] [address] LIPID PANEL (CORONARY RISK 2 )on 02-04-2019 Cholesterol [Mass/Vol] 163 mg/dL Normal 0 - 199 [facility] Comment on above: Order Comment: Sampl e to be sent next day. Result Comment: . AGE DESIRABLE BORDERLINE HIGH HIGH 0-19 Y 0 - 169 170 - 199 >/= 200 20-24 Y 0 - 189 190 - 224 >/= 225 >24 Y 0 - 199 200 - 239 >/= 240 All ranges are based on fasting samples. Specific therapeutic targets will vary based on patient-specific cardiac risk. . Pediatric guidelines reference:Pediatrics 2011, 128(S5). Adult guidelines reference: NCEP ATPIII Guidelines, LAURIE 2001, 258:2486-97 . Venipuncture immediately after or during the administration of Metamizole may lead to falsely low results. Testing should be performed immediately prior to Metamizole dosing. Performed By: #### L IPID #### [facility] [address] [place] [address] Cholesterol in HDL [Mass/Vol] 40.7 mg/dL Normal [facility] Comment on above: Order Comment: Sampl e to be sent next day. Result Comment: . AGE VERY LOW LOW NORMAL HIGH 0-19 Y < 35 < 40 40-45 ---- 20-24 Y ---- < 40 >45 ---- >24 Y ---- < 40 40-60 >60 . Performed By: #### L IPID #### [facility] [address] [place] [address] Cholesterol in LDL [Mass/Vol] 106 mg/dL Normal 0 - 109 [facility] Comment on above: Order Comment: Sampl e to be sent next day. Result Comment: . NEAR BORD AGE DESIRABLE OPTIMAL HIGH HIGH VERY HIGH 0-19 Y 0 - 109 --- 110-129 >/= 130 ---- 20-24 Y 0 - 119 --- 120-159 >/= 160 ---- >24 Y 0 - 99 100-129 130-159 160-189 >/=190 . Performed By: #### L IPID #### [facility] [address] [place] [address] Cholesterol in VLDL [Mass/Vol] 16 mg/dL Normal 0 - 40 [facility] Comment on above: Order Comment: Sampl e to be sent next day. Performed By: #### L IPID #### [facility] [address] [place] [address] Cholesterol.total/C holesterol in HDL [Mass ratio] 4.0 {ratio} Normal [facility] Comment on above: Order Comment: Sampl e to be sent next day. Result Comment: REF VALUES DESIRABLE < 3.4 HIGH RISK > 5.0 Performed By: #### L IPID #### [facility] [address] [place] [address] NON-HDL CHOLESTEROL 122 mg/dL High 0 - 119 [facility] Comment on above: Order Comment: Sampl e to be sent next day. Result Comment: AGE DESIRABLE BORDERLINE HIGH HIGH VERY HIGH 0-19 Y 0 - 119 120 - 144 >/= 145 >/= 160 20-24 Y 0 - 149 150 - 189 >/= 190 ---- >24 Y 30 MG/DL ABOVE LDL CHOLESTEROL GOAL . Performed By: #### L IPID #### [facility] [address] [place] [address] Triglyceride [Mass/Vol] 81 mg/dL Normal 0 - 149 [facility] Comment on above: Order Comment: Sampl e to be sent next day. Result Comment: . AGE DESIRABLE BORDERLINE HIGH HIGH VERY HIGH 0 D-90 D 19 - 174 ---- ---- ---- 91 D- 9 Y 0 - 74 75 - 99 >/= 100 ---- 10-19 Y 0 - 89 90 - 129 >/= 130 ---- 20-24 Y 0 - 114 115 - 149 >/= 150 ---- >24 Y 0 - 149 150 - 199 200- 499 >/= 500 . Venipuncture immediately after or during the administration of Metamizole may lead to falsely low results. Testing should be performed immediately prior to Metamizole dosing. Performed By: #### L IPID #### [facility] [address] [place] [address] MAGNESIUMon 02-04-2019 Magnesium [Mass/Vol] 2.10 mg/dL Normal 1.60 - 2.40 [facility] Comment on above: Order Comment: Sampl e to be sent next day. Performed By: #### M G #### [facility] [address] [place] [address] TSHon 02-04-2019 TSH Qn 1.12 m[IU]/L Normal 0.44 - 3.98 [facility] Comment on above: Order Comment: Sampl e to be sent next day. Result Comment: TSH testing is performed using different testing methodology at [facility] than at other [facility]. Direct result comparisons should only be made within the same method. . Patients receiving more than 5 mg/day of biotin may have interference in test results. A sample should be taken no sooner than eight hours after previous dose. Contact [phone] for additional information. Performed By: #### T SH2 #### [facility] [address] [address] XR CHEST 2V FRONTAL/LATon XR CHEST 2V FRONTAL/LAT * * *Final Report* * * DATE OF EXAM: Jun 24 2018 10:44AM MDX 5291 - XR CHEST 2V FRONTAL/LAT / PROCEDURE REASON: BASELINE PRE EMPLOYMENT * * * * Physician Interpretation * * * * EXAMINATION: CHEST RADIOGRAPH (2 VIEW FRONTAL and LATERAL) CLINICAL HISTORY: Preemployment MQ: [id number] Comparison: None RESULT: Lines, tubes, and devices: None. Lungs and pleura: No consolidation. No pleural effusion. No pneumothorax. Cardiomediastinal silhouette: Normal cardiomediastinal silhouette. There is no hilar or mediastinal adenopathy. Other: No bony abnormalities. IMPRESSION: Normal 2 views of the chest with no evidence for active tuberculosis. 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 Encounters Encounter Date Encounter Type Care Provider Facility Start: 11-02-2024 ambulatory [facility] Facilit y:[facility] Start: 06-24-2018 Patient encounter procedure CIRILO BROCK [facility] Procedures Date Procedure Procedure Detail Performing Clinician Start: 06-13-2019 Follow-up visit Start: 02-03-2019 Follow-up visit Payers Date Payer Category Payer Self-pay 2024 Unknown [id number] Unknown [id number] Summary Purpose Family History No Family History Records FoundNo Family History Records FoundNo Family History Records FoundNo Family History Records FoundNo Family History Records Found Advance Directives No Advanced Directives Records FoundNo Advanced Directives Records FoundNo Advanced Directives Records FoundNo Advanced Directives Records FoundNo Advanced Directives Records Found Additional Source Comments (unrecognized sect ion and content) No Status Records FoundNo Status Records FoundNo Status Records FoundNo Status Records FoundNo Status Records Found INFORMATION SOURCE (unrecogn ized section and content) DATE CREATED AUTHOR 07/12/[address] [facility] DATE CREATED AUTHOR AUTHOR'S ORGANIZ ATION 06/10/2019 [facility] DATE CREATED AUTHOR AUTHOR'S ORGANIZ ATION 06/12/2019 [facility] DATE CREATED AUTHOR AUTHOR'S ORGANIZ ATION 03/04/2020 [facility] DATE CREATED AUTHOR AUTHOR'S ORGANIZ ATION 10/25/2024 [facility] FOR RECORDS PERTAINING TO PATIENTS WHO ARE OR HAVE BEEN ENROLLED IN A CHEMICAL DEPENDENCY/SUBSTANCEABUSE PROGRAM, SOME INFORMATION MAY BE OMITTED. This clinical summary was aggregated from multiple sources. Caution should be exercised in using it in the provision of clinical care. This summary normalizes information from multiple sources, and as a consequence, information in this document may materially change the coding, format and clinical context of patient data. In addition, data may be omitted in some cases. CLINICAL DECISIONS SHOULD BE BASED ON THE PRIMARY CLINICAL RECORDS. [facility] [employer] [facility]. provides no warranty or guarantee of the accuracy or completeness of information in this document.
== END | disposition home or self-care (01) ==
LOC: US 07:23
PROVIDERS: PCP Family Medicine; Referring Provider Family Medicine; Visit Provider Family Medicine
DX: R22.1 Localized swelling, mass and lump, neck (principal)
CPT/HCPCS: 76536

== ENCOUNTER → 2025-01-13 | Outpatient (CLI) | payer OTHER, SELFPAY ==
--- NOTE | 2025-01-13 08:00 | FLU_PTH ---
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 Walter Atwood MD : 2000 BED: DIS: 01/13/2025 SPEC #: [id number] RECD: 01/13/25 10:49 STATUS: NEFTALI REJaylen #: [id number] MASON: 01/13/25 08:[address]: Walter Atwood DEPT: CYTOLOGY RECD BY: Denis López ENTERED: 01/13/25 13:48 SP TYPE: Fluid OTHR DR: Dr. Álvaro Paul MD Tissues: A - Neck, NOS Procedures: Special Stain Group II Surgery Specimen Level IV Cytospin Fluid HEADER OPERATION: Fine needle aspiration of left neck mass PRE-OP DIAGNOSIS: Left neck mass TISSUE SUBMITTED: A- Left neck mass fluid for cytology DIAGNOSIS CYTOLOGY A. Left neck mass, FNA (cytospin, cellblock, smear x4): - No malignant cells identified. - Anucleated squamous cells - see note. Note: The differential diagnosis includes branchial cleft cyst, bronchogenic cyst with squamous metaplasia, and epidermal inclusion cyst, among others. Recommend correlation with clinical and imaging findings. CYTOLOGY STUDY Slides are reviewed. CYTOLOGY GROSS A. Received is 5 ml of colorless fluid with particles and 5 slides labeled with the patient's name and and designated per the requisition as Left neck mass. Submitted for cytology and cell block preparation. Mr 01/13/2025 CPT: 99434,36988
== END | disposition home or self-care (01) ==
LOC: LABSPEC 10:51
PROVIDERS: PCP Family Medicine; Referring Provider Surgery; Visit Provider Surgery
DX: Q18.8 Other specified congenital malformations of face and neck (principal)
CPT/HCPCS: 88108; 88305; 88313